=== PATIENT | male | born 1950 | race Caucasian/White ===

== ENCOUNTER 2017-06-13 18:32 | Emergency (ER) | payer OTHER ==
[~2017-06-13] VITALS: Ht 182.9 cm; Wt 65.3 kg
[~2017-06-13 18:32] MED LIST: ASPIRIN325 PO; CELEXA40 MG PO; CYMBALTA20 MG PO; DIAZEPAM10 M1 PO; DURAGESIC1 EAC2 TD; FENTANYL PA12 MCG/H1 TP; HYDROXYZINE PAM50 MG PO; IODINE PO; KELP PO; MEDROL DOSPAK21 TAB PO; MEDROLDOSEPACK PO; NABUMETONE 750750 M1 PO; NAPROSYN500 MG PO; NAPROXEN SODIU220 M2 PO; NEURONTIN 300300 M1 PO; NEURONTIN600 MG PO; NORVASC 5 MG TAB5 MG PO; NORVASC10 MG; OXYCODONE HCL 55 MG PO; PREDNISONE 5 MG5 M1 PO; PREDNISONE50 MG PO; ROXICODONE5 M1 PO; TIZANIDINE HCL4 MG PO; TRAMADOL 50 MG50 MG PO; VITAMIN D-32000 UNIT; oxycodone PO
[2017-06-13] MEDS ORDERED: OXYCONTIN20 M1 PO ×2 (19:26→20:13)
[2017-06-13] MEDS ORDERED: OXYCODONE HCL20 M1 PO (19:26)
[2017-06-13] MEDS ORDERED: OXYCODONE HCL 55 MG PO (20:13)
== END 2017-06-13 20:34 | disposition home or self-care (01) ==
LOC: ER 18:32
DX: Z76.0 Encounter for issue of repeat prescription (principal); G89.29 Other chronic pain; Z85.89 Personal history of malignant neoplasm of other organs and systems; Z88.5 Allergy status to narcotic agent; Z88.6 Allergy status to analgesic agent; Z87.891 Personal history of nicotine dependence